=== PATIENT | female | born 1995 | race Caucasian/White ===

== ENCOUNTER 2017-09-02 12:51 | Emergency (ER) | payer MEDICAID ==
[~2017-09-02] VITALS: Ht 170.2 cm; Wt 66.0 kg
[2017-09-02 13:18] VITALS: BP 119/57; PULSE 75; RESP 16; TEMP 98.7; O2SAT 100
--- NOTE | 2017-09-02 14:02 | PD ---
HPI Chief Complaint: Abdominal Pain Time Seen by Provider: 13:51 Travel History International Travel<30 days: No Contact w/Intl Traveler<30days: No Traveled to known affect area: No History of Present Illness HPI 21-year-old female with no significant medical history presents to the emergency department for evaluation of lower abdominal/pelvic pain that began last evening after using a new strap on with her girlfriend. Patient states it has persisted throughout the day as cramping. It is moderate in severity. She is uncertain if it is menstrual cramping or secondary to using the strap on. She says it was a different material than she is used to and she has never abused would like that before. She denies any vaginal bleeding. She has a watery discharge that seems to be more than usual. She denies any difficulty urinating. She denies any chance of ; Her last menstrual cycle was August 21. . PFSH Past Medical History Medical History: Denies Significant Hx ?: Not LMP: 08/21/17 Social History Tobacco Use: No Allergies-Medications (Allergen,Severity, Reaction): Coded Allergies: No Known Allergies (Unverified , 09/02/17) Reported Meds & Prescriptions Reported Meds & Active Scripts Active Metrogel Vaginal Gel (Metronidazole Vaginal Gel) 0.75 % Gel 1 Appl VAGINAL HS 5 Days Review of Systems Except as stated in HPI: all other systems reviewed are Neg Physical Exam Narrative GENERAL: Well-nourished female patient, in no acute distress. Patient appears nontoxic. SKIN: Focused skin assessment warm/dry. HEAD: Atraumatic. Normocephalic. EYES: Pupils equal and round. No scleral icterus. No injection or drainage. ENT: No nasal bleeding or discharge. Mucous membranes pink and moist. NECK: Trachea midline. No JVD. CARDIOVASCULAR: Regular rate and rhythm. No murmur appreciated. RESPIRATORY: No accessory muscle use. Clear to auscultation. Breath sounds equal bilaterally. GASTROINTESTINAL: Abdomen soft, nondistended. Mild suprapubic tenderness to palpation. No guarding. No rebound tenderness. Hepatic and splenic margins not palpable. GENITOURINARY: Normal external genitalia without lesions or erythema. Vaginal vault without blood. There is a moderate amount of watery white drainage. Cervical os was closed without drainage. Mild cervical motion tenderness. Uterus nontender and nonenlarged. Bilateral adnexa nontender without masses. MUSCULOSKELETAL: No obvious deformities. No clubbing. No cyanosis. No edema. NEUROLOGICAL: Awake and alert. No obvious cranial nerve deficits. Motor grossly within normal limits. Normal speech. PSYCHIATRIC: Appropriate mood and affect; insight and judgment normal. Data Data Last Documented VS Vital Signs Date Time Temp Pulse Resp B/P (MAP) Pulse Ox O2 Delivery O2 Flow Rate FiO2 09/02/17 14:40 97.7 72 16 118/77 (91) 100 Orders Orders Wet Prep Profile (09/02/17 14:01) Gc And Chlamydia Pcr (09/02/17 14:01) Urinalysis - C+S If Indicated (09/02/17 14:01) Ed Urine Pregnancytest Poc (09/02/17 14:01) Ed Discharge Order (09/02/17 14:35) Labs Laboratory Tests Test 09/02/17 14:05 Urine Color YELLOW Urine Turbidity CLEAR Urine pH 7.5 Urine Specific [place] 1.019 Urine Protein NEG mg/dL Urine Glucose (UA) NEG mg/dL Urine Ketones NEG mg/dL Urine Occult Blood NEG Urine Nitrite NEG Urine Bilirubin NEG Urine Urobilinogen 2.0 MG/DL Urine Leukocyte Esterase NEG Urine RBC 1 /hpf Urine WBC 2 /hpf Urine Squamous Epithelial Cells 2 /hpf Urine Mucus FEW /lpf Microscopic Urinalysis Comment CULT NOT INDICATED Clue Cells (Wet Prep) NONE SEEN Vaginal Trichomonas (Wet Prep) NONE SEEN Vaginal Yeast (Wet Prep) NONE SEEN Chlamydia trachomatis DNA (PCR) NOT DETECTED Neisseria gonorrhoeae DNA (PCR) NOT DETECTED MDM Medical Decision Making Medical Screen Exam Complete: Yes Emergency Medical Condition: Yes Medical Record Reviewed: Yes Differential Diagnosis Cervicitis versus BV versus STD versus UTI Narrative Course 21-year-old female presents emergency department for evaluation of pelvic pain. Patient appears without distress. She does have a moderate amount of watery white discharge within the vaginal vault. Cervix is mildly tender. It is nonfriable. Patient was started on MetroGel. 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 She agrees to return immediately with acute worsening symptoms. Diagnosis Primary Impression: Cervicitis Referrals: [employer] Primary Care Physician Patient Instructions: Cervicitis (ED), General Instructions Additional Instructions: Make sure you are cleansing toys well with appropriate cleanser Follow up with gynecology Return to ED with acute worsening of symptoms Med/Other Pt SpecificInfo: Prescription(s) given Scripts Metronidazole Vaginal Gel (Metrogel Vaginal Gel) 0.75 % Gel 1 APPL VAGINAL HS for Infection for 5 Days, #1 TUBE 0 Refills Prov: Jennifer Braun 09/02/17 Disposition: 01 DISCHARGE HOME Condition: Stable Jennifer Braun September 02, 2017 14:02
[2017-09-02 14:25] LABS: BILIRUBIN, URINE NEG (NEG); BLOOD, URINE NEG (NEG); GLUCOSE,URINE NEG (NEG); KETONE, URINE NEG (NEG); MUCUS URINE FEW /lpf (OCC); NITRITE,URINE NEG (NEG); PH, URINE 7.5 (5.0-8.5); SQUAMOUS EPITHELIAL CELL URINE 2 /hpf (0-5); URINE COLOR YELLOW (YELLW/STRAW); URINE LEUKOCYTE ESTERASE NEG (NEG)
[2017-09-02] MEDS ORDERED: METR0.7528 VAGINAL (14:37)
[2017-09-02 14:40] VITALS: BP 118/77; TEMP 97.7
== END 2017-09-02 14:40 | disposition home or self-care (01) ==
LOC: NEPE 12:51
DX: N72 Inflammatory disease of cervix uteri (principal)
CPT/HCPCS: 81001; 84703; 87210; 87491; 87591; 99284